=== PATIENT | male | born 1935 | race Caucasian/White ===

== ENCOUNTER 2016-08-18 09:59 | Outpatient (CLI) | payer OTHER ==
[~2016-08-18 09:59] MED LIST: ABILIFY5 MG PO; ASPIRIN ADULT L81 MG PO; CLARITIN5 MG; COUMADIN5 MG PO; DEMEROL50 MG PO; FLONASE AL50 MCG/ACT; FLOVENT HFA110 MCG IN; HYCET1 ML PO; HYDROCHLOROTHIA25 MG PO; LIPITOR10 MG PO; LOVENOX100 MG/ML SC; LOVENOX80 MG/0.8 SC; NIACIN ER500 MG PO; SONATA5 MG PO; TRILIPIX135 MG
--- NOTE | 2016-08-18 13:02 | DIAGNOSTIC IMAGING REPORT ---
PROCEDURE: CT IVP CLINICAL INDICATION: MESENTERIC MASS; DELAYED RT UTETER, follow-up TECHNIQUE: Preliminary AP and lateral enterprise project manager views of the abdomen were obtained. Subsequently, noncontrast axial images were obtained of the entire abdomen and pelvis. 150 ml of Isovue 300 was injected intravenously, and axial images were obtained of the abdomen and pelvis with biphasic imaging of the liver and kidneys, followed by sagittal and coronal reformations. Postinjection AP enterprise project manager view of the abdomen was also obtained. COMPARISON: None. FINDINGS: ABDOMEN: Interval placement of a double-J right ureteral stent with the distal end coiled in the distal ureter just proximal to the UVJ. There is mild hydronephrosis which is unchanged. Normal symmetric enhancement of the kidneys. Resection of the previously noted right mesenteric mass with 2.8 x 2.5 cm residual enhance tumor surrounding the mid right ureter. There is also a residual bilobed enhancing mass anterior to the IVC measuring 2.0 and 1.5 cm. There is a right abdominal Lori drain in place. New surgical clips around the cecum. Interval placement of an IVC filter. Lung bases are clear. New small left pleural effusion. Heart size is normal with new small pericardial effusion. Liver, gallbladder, pancreas, spleen and adrenal glands are normal. Normal left kidney. Severe atherosclerosis of the aorta. Mild descending colon diverticulosis. Nonspecific bowel gas pattern. PELVIS: Mild proximal sigmoid diverticulosis with wall thickening and minor infiltration of the adjacent fat. There is no free fluid. Small bilateral fat filled inguinal hernias. No suspicious osseous lesions. Lower pelvic surgical suggestive of prostatectomy. IMPRESSION: 1. Resection of right abdominal mesenteric mass with 2.8 x 2.5 cm residual tumor around the mid right ureter and 2.0 and 1.5 cm bilobed residual tumor anterior to the IVC. 2. Double-J ureteral stent with the distal loop coiled in the distal right ureter, just proximal to the UVJ. There is stable mild right hydronephrosis 3. Right abdominal [place] drain in the surgical bed 4. Cecal surgical clips and IVC filter in place 5. Proximal sigmoid colon diverticulosis with wall thickening and minor infiltration of the adjacent fat suspicious for low grade diverticulitis. Underlying mass is less likely . Recommend follow-up. 6. Prostatectomy 7. New small left pleural and pericardial effusion 8. Results discussed with Dr. Hernández All CT scans at this facility use dose modulation, iterative reconstruction, and/or weight-based dosing when appropriate to reduce radiation dose to as low as reasonably achievable.
== END 2016-08-18 23:00 ==
LOC: CT SRH 09:59
DX: R19.07 Generalized intra-abdominal and pelvic swelling, mass and lump (principal); K57.30 Diverticulosis of large intestine without perforation or abscess without bleeding; J90 Pleural effusion, not elsewhere classified; Z85.46 Personal history of malignant neoplasm of prostate

== ENCOUNTER 2016-09-02 10:06 | Outpatient (CLI) | payer OTHER ==
--- NOTE | 2016-09-02 11:00 | DIAGNOSTIC IMAGING REPORT ---
PROCEDURE: XR CHEST 2 VIEW INDICATION: SOB TECHNIQUE: PA and lateral views. COMPARISON: Chest 07/22/2016 and 07/13/2016 FINDINGS: Lungs are clear. Heart and mediastinum are normal. Thorax is normal. IMPRESSION: 1. Negative chest.
--- NOTE | 2016-09-02 11:46 | DIAGNOSTIC IMAGING REPORT ---
PROCEDURE: US VENOUS - RIGHT EXT INDICATION: PAIN/SWELLING RIGHT LEG, follow TECHNIQUE: Duplex sonography of the deep venous system in the right lower extremity was performed. Compression and augmentation techniques were used. COMPARISON: Lower extremity venous duplex ultrasound 07/01/2016 FINDINGS: Previously noted DVT in the gastrocnemius, popliteal, profunda femoral and superficial femoral veins has propagated to the iliac vein (occluded ) there is also thrombosis of the proximal and mid greater saphenous veins. IMPRESSION: 1. Propagation of right leg DVT from the popliteal to the iliac veins 2. Thrombosis of the proximal and mid right greater saphenous vein 3. Results discussed with Dr. Hernández
== END 2016-09-02 23:00 ==
LOC: LAB SRH 10:06 → US SRH 10:06
DX: I82.401 Acute embolism and thrombosis of unspecified deep veins of right lower extremity (principal); R06.02 Shortness of breath

== ENCOUNTER 2016-09-15 12:54 | Outpatient (CLI) | payer OTHER ==
--- NOTE | 2016-09-15 18:10 | DIAGNOSTIC IMAGING REPORT ---
PROCEDURE: CT ABD/PELVIS WITH CONTRAST INDICATION: Status post resection of right retroperitoneal leiomyosarcoma. Right flank pain. TECHNIQUE: 75 ml of Isovue 300 were injected intravenously and axial images were obtained of the entire abdomen and pelvis with sagittal and coronal reformations. COMPARISON: Comparison is made to CT abdomen and pelvis (CT IVP) on 08/18/2016. FINDINGS: ABDOMEN: Interval removal of right surgical drain. There is moderate increase in a 7.8 x 3.5 cm bilobed right retro peroneal neoplasm (previously 6.3 x 2.2), enveloping the right ureter. There is a double -J right ureteral stent which is partially withdrawn from the bladder, and ends in the distal ureter with mild to moderate right hydronephrosis. Gallbladder, liver, spleen, pancreas, left kidney and aorta are normal. Bowel pattern is normal. IVC filter in position. PELVIS: There is chronic thrombus in the right iliac and femoral vein. Postoperative changes with multiple surgical clips in the pelvis. Moderate to marked diverticulosis, but no evidence of diverticulitis. IMPRESSION: 1. Interim removal of surgical drain in right lower abdomen. 2. Moderate increase in 7.8 x 3.5 cm right retroperitoneal residual neoplasm (previously 6.3 x 2.2 cm). 3. Neoplasm envelops the right ureter. There is a double-J ureteral stent in position, although the stent remains partially withdrawn from the bladder, although there has been no change in right hydronephrosis 4. 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 CT abdomen and pelvis. 5. Moderate to marked sigmoid diverticulosis, but no evidence of diverticulitis. 6. Findings discussed with the patient and his daughter, and called to Dr. Hernández. All CT scans at this facility use dose modulation, iterative reconstruction, and/or weight-based dosing when appropriate to reduce radiation dose to as low as reasonably achievable.
== END 2016-09-15 23:00 ==
LOC: LAB SRH 12:54 → CT SRH 12:54
DX: R10.9 Unspecified abdominal pain (principal); M79.89 Other specified soft tissue disorders; I82.511 Chronic embolism and thrombosis of right femoral vein; K57.30 Diverticulosis of large intestine without perforation or abscess without bleeding; N13.30 Unspecified hydronephrosis; Z98.890 Other specified postprocedural states
CPT/HCPCS: 90047; 90074; 95059

== ENCOUNTER 2016-09-24 00:59 | Observation (INO) | payer OTHER ==
[~2016-09-24] VITALS: Ht 175.3 cm; Wt 75.5 kg
--- NOTE | 2016-09-24 04:28 | ED NURSING NOTES ---
Clinical Report - Nurses [facility] [address] [place] [address] 09/24/2016 1:00 Patient: LYSSA MCCABE TRIAGE Triage time 01:00 Sep 24 2016. Acuity: LEVEL 3. Chief Complaint: SHORTNESS OF BREATH. SEPSIS SCREEN: Sepsis Screen: negative. Negative (no infection suspected/documented). Heart rate greater than 90. --01:11 Marlene Rene 01:02 09/24/16. BP: 145/73. HR: 105. RR: 22. O2 saturation: 98%. Temp: 98.8 F (oral). Pain level now: 08/18. --01:11 Marlene Rene. Weight: 77.1 kg stated. Height/Length: 69 inches Per Patient. BMI: 25.1. --01:09 Marlene Rene. Medications Atorvastatin Calcium Oral. --01:04 Marlene Rene Lovenox Subcutaneous 80 mg, 2x a day. --01:04 Marleen Rene Loratadine Oral. --01:04 Marlene Rene Fluocinolone Oint & Emollient External. Fluticasone Furoate Nasal. --01:05 Marlene Rene Zaleplon Oral. --01:05 Marlene Rene Oxycodone-Acetaminophen Oral. --01:06 Marlene Rene. Medication/allergy information source: the patient. --01:11 Marlene Rene. Allergies Morphine causes nausea. --01:05 Marlene Rene. History Arrived by private vehicle. Historian: patient. Accompanied by family. This started last night. ( Patient reports surgery to remove tumor back in July. He states after surgery he developed swelling in his right leg as well as a rash. he Reports that he had blood clots in his leg prior to surgery and has a filter in his femoral vein. He reports shortness of breath since surgery but states tonight it feels worse.). No fever or cough. PAST MEDICAL HX: Immunizations: status is unknown. SOCIAL HX: Never smoker. No alcohol use or drug use. No infectious disease exposure. ABUSE ASSESSMENT: No report of abuse. FALL RISK ASSESSMENT: Fall risk assessment completed. No fall risk identified. NUTRITIONAL RISK ASSESSMENT: The nutritional risk assessment revealed no deficiencies. FUNCTIONAL ASSESSMENT: Functional assessment: no impairments noted. LEARNING NEEDS ASSESSMENT: The learning needs assessment revealed no barriers. SKIN INTEGRITY ASSESSMENT: Skin integrity risk assessment completed. No skin integrity risk identified. --:11 Marlene Rene. PROBLEMS: Oral Anticoagulation Therapy. Abdominal Pain. Renal Insufficiency. DVT - Deep Venous Thrombosis. Prostate Cancer. Hypertension. --01:06 Marlene Rene. ADDITIONAL SURGERIES: Prostatectomy. Tonsillectomy. Tumor removal . --: Marlene Rene. Interventions ID band on patient. To treatment room. --:11 Marlene Rene. PHYSICAL ASSESSMENT Ambulatory to room. GENERAL / NEURO / PSYCH: Alert. Oriented X 4. Appears in no acute distress. HEENT: Mucous membranes are pink. RESPIRATORY: Mild respiratory distress. The patient can speak in full sentences. CVS: Cardiac rhythm: sinus tachycardia; (105). EXTREMITIES: 3+ pitting edema of the right lower extremity involving the foot, ankle, lower leg and thigh. SKIN: Skin rash located on the right leg. Skin is warm and dry. --01:12 Marlene Rene. NURSING PROGRESS NOTES Pulse oximeter and NIBP monitor placed on patient; monitor alarms on. Patient gowned. Reassurance given to the patient. Two patient identifiers checked. Call light placed in reach. Side rails up x 2. Bed placed in lowest position. Brakes of bed on. Patient ready for evaluation- chart flagged. --01:13 Marlene Rene 01:30 09/24/2016 Site #1 started via IV in the left antecubital space with an 20g angiocath, with aseptic technique and good blood return; one attempt. Blood drawn: rainbow set. Labeled in the presence of the patient and sent to the lab. Saline lock flushed with 10 mL saline. --:30 Marlene Rene EKG time: (01:19 Sep 24 2016). EKG was ordered, performed by a tech and shown to the ED physician. --01:35 Marlene Rene ( Patient reported pain at incision site. Pain medications ordered, patient refused morphine due to allergy. Patient states he vomits with morphine. RN explained to patient this is a common side effect and may not indicate a true allergy. Patient states at prior hospital visits he received Dilaudid. Patient informed that hydromorphone contains similar ingredient as morphine and may also cause nausea. provider placed order for dilaudid and zofran. RN at [facility] to give medication and patient refusing medication at this time, states he feels better.). --02:01 Marlene Rene 02:26 09/24/16. BP: 127/68. HR: 100. RR: 20. O2 saturation: 100% on nasal cannula at 2 liters/minute. Pain level now: 08/18. --02:26 Anju Marlene Patient transported to [place] by stretcher with tech. (02:40 Sep 24 2016). --02:40 Marlene Rene Patient returned from CT by stretcher with tech. (02:58 Sep 24 2016). ( Warm blankets applied). --03:01 Marlene Rene 02:58 09/24/16. BP: 137/81. HR: 104. RR: 20. O2 saturation: 100% on room air. --03:01 Marlene Rene 03:02 09/24/2016 Site #1. Redness and swelling noted. Infiltration Scale: Grade 3- skin blanched and edema less than 1 inch with mild to moderate pain. --03:02 Marlene Rene 03:30 09/24/16. ( Lab at bedside drawing labs). --03:51 Marlene Rene 04:00 09/24/16. BP: 132/70. HR: 100. RR: 20. O2 saturation: 99% on room air. --04:16 Marlene Rene 04:16 09/24/16. BP: 134/82. HR: 100. RR: 20. O2 saturation: 99% on room air. --04:17 Marlene Rene 04:19 09/24/2016 Nitroglycerin SL Tablets 0.4 mg given. Allergies verified and confirmed 5 rights. --04:19 Marlene Rene 04:26 09/24/16. BP: 130/80. HR: 100. RR: 20. O2 saturation: 96% on room air. Pain level now: 08/18. --04:27 Marlene Rene 04:45 09/24/2016 Site #1 removed. Catheter intact. Bandaid applied. --04:45 Marlene Rene 04:51 09/24/2016 Site #2 started via IV in the right forearm with an 22g angiocath, with aseptic technique and good blood return; one attempt. Saline lock flushed with 10 mL saline. --04:56 Joceline Wesbtrook R.N. 04:59 09/24/2016 Lasix IVP 40 mg given over 3 minute(s) via site #2. Allergies verified and confirmed 5 rights. IV patency established. IV site checked: no pain, redness, or swelling. IV flushed thoroughly pre- and post-medication administration. IVP given by RN. --04:59 Marlene Rene 05:12 09/24/2016 Site #[address] upon admission; patent, no pain and no signs of infection or infiltration. Converted to saline lock and flushed with 10 mL saline. --05:12 Marlene Rene. DISPOSITION / DISCHARGE 05:11 09/24/16. Condition at departure: stable. --05:11 Marlene Rene 05:10 09/24/16. BP: 131/76. HR: 103. RR: 20. O2 saturation: 98% on room air. Temp: 98.2 F (oral). Pain level now: 08/18. --05:11 Marlene Rene Disposition: observation in Acute Care. Transported via stretcher by [employer]. Report was given to a nurse via a phone call. Report included patient's care, treatment, medications, reviewed medication reconcilliation, and condition (including any recent changes or anticipated changes). All questions were answered. Report was acknowledged and care was transferred. (Paxton RICARDO). Patient's personal items; items were placed in belongings bag and transported with the patient. --05:12 Marlene Rene. Locked/Released at 09/24/2016 7:34 by Marlene Rene,
--- NOTE | 2016-09-24 04:28 | ED ORDER SUMMARY ---
..... Patient: LYSSA MCCABE OrderSheet [facility] VisitID: [id number] [place] [address] 80y, M Registration Date/Time: 09/24/2016 ORDER SHEET Weight: 77.1 kg (stated) Allergies: Morphine causes nausea GENERAL ORDERS: EKG - ER Stat (:09/24/2016 Stone Fink) (Ack 1:24 AMcQuoid ER Tech1) (1:27 HSoule) Chest 1V Urgent (:09/24/2016 Stone Fink) (Ack 1:24 AMcQuoid ER Tech1) (1:41 GUnger) Embedder (Continuous) (Respiratory Distress) (:09/24/2016 Stone Fink) (Ack 1:24 AMcQuoid ER Tech1) (1:27 HSoule) CBC w Diff Urgent (:09/24/2016 Stone Fink) (Ack 1:24 AMcQuoid ER Tech1) (2:04 AMcQuoid ER Tech1) CMP Urgent (:09/24/2016 Stone Fink) (Ack 1:24 AMcQuoid ER Tech1) (2:04 AMcQuoid ER Tech1) UA-Culture if indicated Urgent (:09/24/2016 Stone Fink) (Ack 1:24 AMcQuoid ER Tech1) (7:34 HSoule) PT with INR Urgent (:09/24/2016 Stone Fink) (Ack 1:24 AMcQuoid ER Tech1) (2:04 AMcQuoid ER Tech1) PTT Urgent (:09/24/2016 Stone Fink) (Ack 1:24 AMcQuoid ER Tech1) (2:04 AMcQuoid ER Tech1) Troponin-I Urgent (09/24/2016 Stone Fink) (Ack 1:24 AMcQuoid ER Tech1) (2:04 AMcQuoid ER Tech1) BNP Urgent (:09/24/2016 Stone Fink) (Ack 1:24 AMcQuoid ER Tech1) (2:04 AMcQuoid ER Tech1) D-Dimer Urgent (01:17 09/24/2016 Stone Fink) (Ack 1:24 AMcQuoid ER Tech1) (2:04 AMcQuoid ER Tech1) Pulse oximeter (01:17 09/24/2016 Stone Fink) (1:18 HSoule) Oxygen (2 L/min) (NC) (01:17 09/24/2016 Stone Fink) (Ack 1:24 AMcQuoid ER Tech1) (1:27 HSoule) CTA Thorax w Cont (No) (GFR 44. Cleared for CT per doc) Urgent (02:11 09/24/2016 Stone Fink) (Ack 2:17 AMcQuoid ER Tech1) (Cancelled: Other4:17 HSoule) Troponin-I (Redraw at 3:30am) Urgent (02:33 09/24/2016 Stone Fink) (Ack 2:35 AMcQuoid ER Tech1) (4:17 HSoule) MEDICATION ORDERS: NitroGLYCERIN SL 0.4 mg (once now) (04:13 09/24/2016 Stone Fink) (Ack 4:16 HSoule) (4:19 HSoule) IV FLUIDS: IV Saline Lock (01:09/24/2016 Stone Fink) (Ack 1:18 HSoule) (1:30 HSoule) Zofran IV 4 mg (NOW) (01:54 09/24/2016 Stone Fink) (Cancelled: Patient Refusal1:59 HSoule) Dilaudid IV 0.5 mg (HIGH ALERT MEDICATION, NOW) (01:54 09/24/2016 Stone Fink) (Cancelled: Patient Refusal1:59 HSoule) Lasix IV 40 mg (NOW) (04:28 09/24/2016 Stone Fink) (Ack 4:29 HSoule) (4:59 HSoule) ORDER SHEET NOTES: [Electronically signed by Marlene Rene (07:34 09/24/2016)] [Electronically signed by Marcelo Garcia Dr. (10:20 09/29/2016)] [Electronically locked/signed by Marlene Rene (07:34 09/24/2016)]
--- NOTE | 2016-09-24 04:28 | ED ORDER SUMMARY ---
..... Patient: LYSSA MCCABE OrderSheet [facility] VisitID: [id number] [address] [place] [address] 80y, M Registration Date/Time: 09/24/2016 ORDER SHEET Weight: 77.1 kg (stated) Allergies: Morphine causes nausea GENERAL ORDERS: EKG - ER Stat (:09/24/2016 Stone Fink) (Ack 1:24 AMcQuoid ER Tech1) (1:27 HSoule) Chest 1V Urgent (:09/24/2016 Stone Fink) (Ack 1:24 AMcQuoid ER Tech1) (1:41 GUnger) Mechanical Unit Repairer (Continuous) (Respiratory Distress) (:09/24/2016 Stone Fink) (Ack 1:24 AMcQuoid ER Tech1) (1:27 HSoule) CBC w Diff Urgent (:09/24/2016 Stone Fink) (Ack 1:24 AMcQuoid ER Tech1) (2:04 AMcQuoid ER Tech1) CMP Urgent (:09/24/2016 Stone Fink) (Ack 1:24 AMcQuoid ER Tech1) (2:04 AMcQuoid ER Tech1) UA-Culture if indicated Urgent (:09/24/2016 Stone Fink) (Ack 1:24 AMcQuoid ER Tech1) (7:34 HSoule) PT with INR Urgent (:09/24/2016 Stone Fink) (Ack 1:24 AMcQuoid ER Tech1) (2:04 AMcQuoid ER Tech1) PTT Urgent (:09/24/2016 Stone Fink) (Ack 1:24 AMcQuoid ER Tech1) (2:04 AMcQuoid ER Tech1) Troponin-I Urgent (09/24/2016 Stone Fink) (Ack 1:24 AMcQuoid ER Tech1) (2:04 AMcQuoid ER Tech1) BNP Urgent (:09/24/2016 Stone Fink) (Ack 1:24 AMcQuoid ER Tech1) (2:04 AMcQuoid ER Tech1) D-Dimer Urgent (01:17 09/24/2016 Stone Fink) (Ack 1:24 AMcQuoid ER Tech1) (2:04 AMcQuoid ER Tech1) Pulse oximeter (01:17 09/24/2016 Stone Fink) (1:18 HSoule) Oxygen (2 L/min) (NC) (01:17 09/24/2016 Stone Fink) (Ack 1:24 AMcQuoid ER Tech1) (1:27 HSoule) CTA Thorax w Cont (No) (GFR 44. Cleared for CT per doc) Urgent (02:11 09/24/2016 Stone Fink) (Ack 2:17 AMcQuoid ER Tech1) (Cancelled: Other4:17 HSoule) Troponin-I (Redraw at 3:30am) Urgent (02:33 09/24/2016 Stone Fink) (Ack 2:35 AMcQuoid ER Tech1) (4:17 HSoule) MEDICATION ORDERS: NitroGLYCERIN SL 0.4 mg (once now) (04:13 09/24/2016 Stone Fink) (Ack 4:16 HSoule) (4:19 HSoule) IV FLUIDS: IV Saline Lock (01:09/24/2016 Stone Fink) (Ack 1:18 HSoule) (1:30 HSoule) Zofran IV 4 mg (NOW) (01:54 09/24/2016 Stone Fink) (Cancelled: Patient Refusal1:59 HSoule) Dilaudid IV 0.5 mg (HIGH ALERT MEDICATION, NOW) (01:54 09/24/2016 Stone Fink) (Cancelled: Patient Refusal1:59 HSoule) Lasix IV 40 mg (NOW) (04:28 09/24/2016 Stone Fink) (Ack 4:29 HSoule) (4:59 HSoule) ORDER SHEET NOTES: [Electronically signed by Marlene Rene (07:34 09/24/2016)] [Electronically signed by Marcelo Garcia Dr. (10:20 09/29/2016)] [Electronically locked/signed by Marlene Rene (07:34 09/24/2016)]
--- NOTE | 2016-09-24 04:28 | ED CLINICAL REPORT ---
Clinical Report - Physicians/Mid Levels [facility] [address] [place] [address] 09/24/2016 1:00 Patient: LYSSA MCCABE Arrived- By private vehicle. Historian- patient. HISTORY OF PRESENT ILLNESS Chief Complaint: DYSPNEA. This started last night and is still present and worsening. It was gradual in onset and has been constant but is not gone now. The dyspnea is described as moderate and is worsened by exertion and is improved with sitting upright. No sputum production, sweating episodes, wheezing or chills. No chest pain or discomfort, calf pain or foot swelling. (reports being on blood thinners and having a IVC filter. patient states he has never been diagnosed with CHF or CT. Has hx of abdominal tumor resection about a month ago. Reports doing well since then. Has oncology appointment on 09/25/2016.). Similar symptoms previously: None. Recent medical care: The patient was seen recently in the emergency department and hospitalized. REVIEW OF SYSTEMS No nausea or vomiting. All systems otherwise negative, except as recorded above. PAST HISTORY See nurses notes. Deep venous thrombosis. Medications: Oxycodone-Acetaminophen Oral. Zaleplon Oral. Fluocinolone Oint & Emollient External. Fluticasone Furoate Nasal. Loratadine Oral. Lovenox Subcutaneous 80 mg, 2x a day. Atorvastatin Calcium Oral. Allergies: Morphine causes nausea. SOCIAL HISTORY Never smoker. No alcohol use or drug use. No recent travel. Is a local resident. ADDITIONAL NOTES The nursing notes have been reviewed. PHYSICAL EXAM Vital Signs: 09/24/2016 01:02 BP: 145/73. HR: 105. RR: 22. O2 saturation: 98%. Temp: 98.8 F. Pain level now: 110. Hypertensive. Oxygen saturation normal. Appearance: Alert. No acute distress. Eyes: Pupils equal, round and reactive to light. Eyes normal inspection. ENT: Ears normal. Nose normal. Pharynx normal. Uvula midline. Neck: Normal inspection. No jugular venous distention. Neck supple. CVS: Normal heart rate and rhythm. Heart sounds normal. Pulses normal. Respiratory: No wheezes or stridor. (mild crackles at the bases.). Abdomen: Soft and nontender. No organomegaly. Back: Normal inspection. Skin: Skin warm and dry. Normal skin color. No rash. Normal skin turgor. Extremities: Lower extremity edema. R > L. (hyperemia to the anterior left hernández that is improved per patient. no crepitus. no increased warmth. non-tender.). Neuro: Oriented X 3. No motor deficit. No sensory deficit. LABS, X-RAYS, AND EKG EKG: No acute process. No acute ischemia. Normal EKG. Narrow-complex tachycardia (103). Sinus tachycardia. Normal P waves. Normal JUANA. Normal QRS complex. Normal axis. Normal ST and T waves, QT and QTc. The study has been interpreted contemporaneously. The study has been independently viewed by me. The EKG appears to be a good tracing. Chest X-ray: Mild vascular congestion present. Cardiomegaly. No infiltrate. No pneumothorax. (Impression: mild CHF). Views: PA. Technique: good. The X-rays were independently viewed by me and interpreted contemporaneously by me. Laboratory Tests: CBC w Diff: (PHIL: 09/25/2016 05:30) ( MsgRcvd 09/25/2016 05:56) Final results Test Result Flag Units (Reference) WHITE BLOOD COUNT 9.2 K/uL (4.5-11.5) RED BLOOD COUNT 3.46 L M/uL (4.50-5.90) HEMOGLOBIN 9.5 L gm/dL (13.5-17.5) HEMATOCRIT 29.3 L % (41.0-53.0) MEAN CELL VOLUME 85 fL (80-100) MEAN CORPUSCULAR HGB 28 pg (26-34) MEAN CORPUSCULAR HGB CONC 33 g/dL (31-37) RED CELL DISTRIBUTION WIDTH 17.3 H % (11.6-14.8) PLATELET COUNT 544 H K/uL (150-400) NEUTROPHIL % 79.3 H % (50-75) LYMPH % 11.4 L % (25-40) MONO % 6.7 % (3-14) EOSINOPHIL % 2.3 % (0-4) BASOPHIL % 0.3 % (0-2) CMP: (PHIL: 09/25/2016 05:30) ( MsgRcvd 09/25/2016 06:22) Final results Test Result Flag Units (Reference) GLUCOSE 97 mg/dL (70-110) BUN 19 H mg/dL (7-18) CREATININE 1.7 H mg/dL (0.6-1.3) Estimated GFR 41.53 mL/min Estimated GFR- 50.33 mL/min Note: Persistent reduction over 3 months in eGFR<60 mL/min/1.73 m2 defines CKD. Patients with eGFR values>=60 mL/min/1.73 m2 may also have CKD if evidence ofpersistent proteinuria. Additional information may be foundat [email or web address]. SODIUM 137 mmol/L (136-145) POTASSIUM 4.3 mmol/L (3.5-5.1) CHLORIDE 100 mmol/L (98-107) CARBON DIOXIDE 26 mmol/L (21-32) CALCIUM 8.3 L mg/dL (8.5-10.1) TOTAL PROTEIN 6.4 g/dL (6.4-8.2) ALBUMIN 2.5 L g/dL (3.3-5.0) BILIRUBIN, TOTAL 0.2 mg/dL (0.0-1.0) ALKALINE PHOSPHATASE 135 H U/L (46-116) AST (SGOT) 15 U/L (15-37) ALT (SGPT) 13 U/L (12-78) BMP: (PHIL: 09/25/2016 05:30) ( MsgRcvd 09/25/2016 06:42) Final results Test Result Flag Units (Reference) GLUCOSE 96 mg/dL (70-110) BUN 19 H mg/dL (7-18) CREATININE 1.7 H mg/dL (0.6-1.3) Estimated GFR 41.53 mL/min Estimated GFR- 50.33 mL/min Note: Persistent reduction over 3 months in eGFR<60 mL/min/1.73 m2 defines CKD. Patients with eGFR values>=60 mL/min/1.73 m2 may also have CKD if evidence ofpersistent proteinuria. Additional information may be foundat [email or web address]. SODIUM 135 L mmol/L (136-145) POTASSIUM 4.3 mmol/L (3.5-5.1) CHLORIDE 98 mmol/L (98-107) CARBON DIOXIDE 24 mmol/L (21-32) CALCIUM 8.3 L mg/dL (8.5-10.1) MAGNESIUM 2.0 mg/dL (1.8-2.4) UA-Culture if indicated: (PHIL: 09/24/2016 02:55) ( [facility] 09/24/2016 03:11) Final results Test Result Flag Units (Reference) URINE COLOR YELLOW URINE APPEARANCE CLEAR URINE GLUCOSE NEGATIVE (NEGATIVE) URINE BILIRUBIN NEGATIVE (NEGATIVE) URINE KETONE NEGATIVE (NEGATIVE) URINE SPECIFIC GRAVITY 1.020 (1.010-1.030) URINE PH 6.5 (5.0-8.0) URINE PROTEIN TRACE (NEGATIVE) URINE UROBILINOGEN 0.2 EU/dL (0.2-1.0) URINE NITRITE NEGATIVE (NEGATIVE) URINE BLOOD 1+ (NEGATIVE) URINE LEUK ESTERASE NEGATIVE (NEGATIVE) URINE RBC 3-5 rbc/hpf (0-1) URINE WBC 1-3 wbc/hpf (0-1) URINE EPITHELIAL CELLS NONE SEEN EPI/hpf (0-5) URINE BACTERIA TRACE (<1+) (NONE SEEN) URINE COMMENT CULT NOT INDICATED URINE CULTURES ARE SET-UP BASED ON THE FOLLOWING CRITERIA:POSITIVE NITRITEPOSITIVE LEUKOCYTE ESTERASEGREATER THAN 10 WHITE BLOOD CELLSMODERATE (2+) OR GREATER BACTERIA CBC w Diff: (PHIL: 09/24/2016 01:30) ( [facility] 09/24/2016 01:48) Final results Test Result Flag Units (Reference) WHITE BLOOD COUNT 9.3 K/uL (4.5-11.5) RED BLOOD COUNT 3.99 L M/uL (4.50-5.90) HEMOGLOBIN 11.0 L gm/dL (13.5-17.5) HEMATOCRIT 33.7 L % (41.0-53.0) MEAN CELL VOLUME 85 fL (80-100) MEAN CORPUSCULAR HGB 28 pg (26-34) MEAN CORPUSCULAR HGB CONC 33 g/dL (31-37) RED CELL DISTRIBUTION WIDTH 17.1 H % (11.6-14.8) PLATELET COUNT 611 H K/uL (150-400) NEUTROPHIL % 81.7 H % (50-75) LYMPH % 9.5 L % (25-40) MONO % 6.9 % (3-14) EOSINOPHIL % 1.7 % (0-4) BASOPHIL % 0.2 % (0-2) PT with INR: (PHIL: 09/24/2016 01:30) ( [facility] 09/24/2016 01:55) Final results Test Result Flag Units (Reference) INR 1.0 (0.8-1.2) Low Intensity Therapy: INR 1.5-2.0 PT range 18.5-23.1Mod.Intensity Therapy: INR 2.0-3.0 PT range 23.1-31.5High Intensity Therapy: INR 2.5-3.5 PT range 27.4-35.5High Intensity Therapy 2: INR 3.0-4.0 PT range 31.5-39.3 APTT 38 H SECONDS (24-34) D-DIMER QUANTITATIVE 1.61 H ug/mLFEU (0.27-0.52) The primary value of this quantitative assay relates toits negative predictive value (i.e. exclusion) of pulmonaryembolism/deep vein thrombosis/DIC.Elevated levels of d-dimer may also occur with:, age, cancer, inflammation, liver disease,post-op, infection, hematoma, coronary disease, peripheralarteriopathy, bleeding disorders and thrombolytic treatment.Results should be correlated with other clinical andradiological data.Testing Methodology: Latex Immunoassay Troponin-I: (PHIL: 09/24/2016 03:40) ( [facility] 09/24/2016 04:09) Final results Test Result Flag Units (Reference) TROPONIN I 0.06 ng/mL (0.00-1.5) TROPONIN REFERENCE RANGE:<0.1 NEGATIVE0.1-1.5 INDETERMINANT>1.5 POSITIVE BNP: (PHIL: 09/24/2016 01:30) ( [facility] 09/24/2016 02:17) Final results Test Result Flag Units (Reference) B-TYPE NATRIURETIC PEPTIDE 907 H pg/ml (5-100) CMP: (PHIL: 09/24/2016 01:30) ( MsgRcvd 09/24/2016 02:07) Final results Test Result Flag Units (Reference) GLUCOSE 97 mg/dL (70-110) BUN 15 mg/dL (7-18) CREATININE 1.6 H mg/dL (0.6-1.3) Estimated GFR 44.54 mL/min Estimated GFR- 53.98 mL/min Note: Persistent reduction over 3 months in eGFR<60 mL/min/1.73 m2 defines CKD. Patients with eGFR values>=60 mL/min/1.73 m2 may also have CKD if evidence ofpersistent proteinuria. Additional information may be foundat [email or web address]. SODIUM 135 L mmol/L (136-145) POTASSIUM 4.6 mmol/L (3.5-5.1) CHLORIDE 98 mmol/L (98-107) CARBON DIOXIDE 26 mmol/L (21-32) CALCIUM 8.9 mg/dL (8.5-10.1) TOTAL PROTEIN 7.5 g/dL (6.4-8.2) ALBUMIN 2.9 L g/dL (3.3-5.0) BILIRUBIN, TOTAL 0.3 mg/dL (0.0-1.0) ALKALINE PHOSPHATASE 170 H U/L (46-116) AST (SGOT) 24 U/L (15-37) ALT (SGPT) 18 U/L (12-78) TROPONIN I 0.10 ng/mL (0.00-1.5) TROPONIN REFERENCE RANGE:<0.1 NEGATIVE0.1-1.5 INDETERMINANT>1.5 POSITIVE . PROGRESS AND PROCEDURES Course of Care: the patient is a pleasant 80-year-old male presenting for evaluation of shortness of breath. The patient was brought in and in a mild amount of distress. The patient however did not appear toxic. Differential diagnoses at this time includes acute medical cardiac infarction, pulmonary embolism, pneumonia,congestive heart failure exacerbation. The patient does have a history of DVT. Patient will be evaluated with CT scan of the chest. Patient is agreeable to treatment plan. Patient's workup was noted for the findings above. Troponin is noted to be negative. The patient is having an acute myocardial infarction. EKG also does not indicate patient to have any acute ischemic events. Because of the patient's IVC filter and being on blood thinners, had discussion with patient and decided the CT scan of the chest would would not be needed at this time. Patient also would not be a good candidate for a ventilation perfusion scan based on his elevated BNP. Because of the elevated BNP,this is likely the patient'sreason for having the shortness of breath. Symptoms are also consistent with this. Had discussion with the hospitalist who will except the patient. Appropriate therapy has been given including nitroglycerin and Lasix. Patient be monitored in the hospital forcongestive heart failure. The patient has been resting here in the emergency department and in no acute distress. Breathing has significant improved upon reevaluation several times here in the emergency department. Patient has been updated on the plan of care as well as workup and diagnosis. Patient is agreeable to treatment plan. Family has been updated as well per patient's request. I spoken to the hospitalist who will except the patient. No further recommendations. He was admitted. patient stable for floor placement with telemetry. Tonight the patient needs ICU level of care. Critical care performed (65 minutes). Time is exclusive of separately billable procedures. Time includes: direct patient care, patient reassessment, coordination of patient care, review of patient's medical records, medical consultation, family consultation regarding treatment decisions and documentation of patient care. Consult obtained. Hospitalist. Disposition: Admitted. (Electronically signed by Marcelo Garcia Dr. 09/29/2016 10:20)
--- NOTE | 2016-09-24 05:39 | Progress Note ---
Subjective General Full note dictated: 80 y.o male with worse SOB last 2 days and orthopnea. 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 He presented with CXR and BNP c/w mild CHF. Plan: admit, treat with lasix and monitor labs. Has radiation due Wednesday and hopefully will be able to get this done if ready for d/c.
[2016-09-24 05:54] VITALS: BP 135/84
[2016-09-24] MEDS ORDERED: LORATADINE10 MG PO (06:00)
[2016-09-24] MEDS ORDERED: ENDOCET1 TAB PO (06:02)
[2016-09-24] MEDS ORDERED: LOVENOX80 MG/0.8 SC (06:04)
[2016-09-24] MEDS ORDERED: TRIAMCINOLONE A0.11 TOP (06:06)
--- NOTE | 2016-09-24 06:56 | DIAGNOSTIC IMAGING REPORT ---
PROCEDURE: XR CHEST 1 VIEW INDICATION: SHORTNESS OF BREATH TECHNIQUE: Portable AP view (0135 hours). COMPARISON: Compared to CT abdomen on 09/15/2016 and chest x-ray (09/02/2016). FINDINGS: Allowing for overlying wires and electrodes, lungs are clear. There are minimal pleural effusions. Heart and mediastinum are normal. Thorax is normal. IMPRESSION: 1. Minimal pleural effusions. 2. Otherwise negative chest.
--- NOTE | 2016-09-24 07:05 | HISTORY AND PHYSICAL ---
ADMITTED: 09/24/2016 CHIEF COMPLAINT: 1. Shortness of breath HISTORY OF PRESENT ILLNESS: The patient states that he has had surgery recently in his left lower abdomen a couple months ago, which was done by Dr. Hernández. Ever since that time, he has had issues of shortness of breath and some difficulty with breathing, that he has had a history of blood clots, he has bilateral DVTs as well as history of a Jenni filter and Lovenox 80 mg subcutaneous b.i.d. for treatment. In the last 3 weeks, he has noticed that his legs were swollen and then he has had a couple of weeks of a rash that is red and itchy on his right leg, and then for the last 2 nights, he has had a lot of shortness of breath, especially when he tries to lay down, he cannot sleep at all, that this increasing in worse shortness of breath, brought him into the hospital today for further evaluation. In the emergency department, he was found to have an elevated BNP and a chest x-ray that was consistent with congestive heart failure and he is admitted for congestive heart failure, mild exacerbation, and treatment and management. MEDICAL/SURGICAL HISTORY: His past medical history, he has generally been healthy other than his recent tumor. 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 . He has also had a history of prostate cancer and he has had high cholesterol and DVTs and high blood pressure. His past surgical history, he has had leiomyosarcoma surgery. He has had the Jenni filter and his ureteral stents. He has also had prostate surgery. MEDICATIONS: 1. He takes Lovenox 30 mg subcutaneous b.i.d. 2. Atorvastatin, he is uncertain of his dosing. 3. Zolpidem 10 mg p.o. at bedtime p.r.n. sleep. 4. Loratadine D 10 mg p.o. daily. 5. He uses a topical ointment on his right leg as needed. 6. Fluticasone 2 sprays each nostril once daily. ALLERGIES: 1. QUESTION MORPHINE. HE SAYS HE HAD LOTS OF VOMITING AFTER. SOCIAL HISTORY: He is . He does not smoke. He does not drink. Does not use any drugs. 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 FAMILY HISTORY: Mom and dad, he says he cannot recall what happened with them but his dad might have of heart disease, both have . REVIEW OF SYSTEMS: He states that he has had right leg swelling, rash, lower abdominal pain. He has a history of a ureteral stent that is misplaced and is supposed to have this replaced in about 3 weeks. He has got a tumor that is growing in his right lower abdomen and is followed by hematology/oncology with Dr. Reeys. Dr. Hernández did a surgery on is, that he is also going to be having radiation treatment and he is due for radiation on Wednesday as this tumor is growing. He has had this shortness of breath. He has had the history of blood clots. He otherwise denies any issues with bowel or bladder function or any major weakness. He does state that he is having more problems with his memory and forgetfulness that is going on with time and age. CODE STATUS: FULL CODE, THOUGH HE SAYS HE HAS A POLST FORM AND HE DOES NOT RECALL WHAT HE THOUGHT ON THAT, WITH DR. ROSAS. HE DOES WANT TO BE COMFORTABLE, BUT HE ALSO WANTS TO CONTINUE LIVING AT THIS TIME. PHYSICAL EXAMINATION: GENERAL: He is an alert, pleasant, cooperative male, who is sitting up, talking in full sentences, in no significant distress. VITAL SIGNS: Blood pressure is 145/73, heart rate of 105, respirations 22, saturating 98% on room air. His temperature is 98.8 and he is not having any significant pain. HEENT: Extraocular movements intact. Pupils equal, round, and reactive to light. Oropharynx is clear with moist mucous membranes. NECK: Supple without lymphadenopathy. LUNGS: With some coarse breath sounds bilaterally. Slightly decreased, nonfocal for significant rales. HEART: Regular rate and rhythm. No murmur. ABDOMEN: Soft, slightly tender to palpation over the right lower abdomen. He has a well-healed surgical scar in his mid lower abdomen. EXTREMITIES: Have 2+ edema bilaterally and his right foot has a red, slightly raised, erythematous papular/macular rash that has some excoriations. GENITOURINARY: Deferred. RECTAL: Deferred. NEUROLOGIC: Cranial nerves II-XII intact. Strength and sensation grossly intact. LAB/IMAGING: CBC is 9.3, hematocrit 33.3, platelets of 611. An INR of 1.0. D- dimer 1.6. A comprehensive metabolic panel, glucose 97, BUN 15, creatinine 1.6, sodium 135, potassium 4.6, chloride of 98, carbon dioxide 26, calcium 8.9, total protein 7.5, albumin 2.9, total bilirubin 0.3, alkaline phosphatase 170, AST of 24, ALT of 18. Troponin I 0.1. BNP of 907. Urinalysis was unremarkable except for a little bit of blood in his urine. Troponin was 0.06. EKG showed a sinus rhythm without any acute ST-T wave changes. There are nonspecific changes and no inferior Q's. There is sinus tachycardia, possible left atrial enlargement. CXR: mild CHF IMPRESSION: 1. This is a 80-year-old male with leiomyosarcoma that is actively growing in the right lower abdomen. 2. History of right-sided leg swelling greater than left that has erythema and 2+ edema. 3. He has increasing shortness of breath going on acutely over the last few days. PLAN: With his elevated BNP, we will admit him for mild congestive heart failure exacerbation, treat him with some Lasix and monitor his electrolytes. He has got some baseline renal insufficiency. A CT pulmonary angiogram has been done on him recently with veins that were unable to tolerate the dye load, and at this point, we will hold on this test and may consider if indicated a V/Q scan or attempted repeat trial on CT pulmonary angiogram if indicated. However, he is currently on Lovenox b.i.d. as well as has a Jenni filter and so should be adequately protected. He otherwise appears to be doing well and is comfortable and has no acute issues. We will admit him as an observation status, and hopefully, will be able to get him through his radiation treatment tomorrow.
--- NOTE | 2016-09-24 07:11 | NUR ---
TO ROOM 210B FROM ED VIA STRETCHER AROUND 0600. TRANSPORTED BY FACILITY TECH. PT AMBULATED FROM STRETCHER TO BED INDEPENDENTLY AND STEADY. A&OX4.
--- NOTE | 2016-09-24 09:24 | NUR ---
PATIENT RESTING IN BED AND UP IN CHAIR FOR BREAKFAST. AMBULATING INDEPENDENTLY IN ROOM. DENIES PAIN. SEE SHIFT ASSESSMENT FOR FURTHER DETAILS. TO HAVE ECHOCARDIOGRAM TODAY.
[2016-09-24 10:39] VITALS: BP 119/63
--- NOTE | 2016-09-24 13:21 | NUR ---
PATIENT ON TELE AND CONTINUES TO BE SINUS TACHYCARDIA. MD IS AWARE AND NO CHANGES MADE AT THIS TIME.
[2016-09-24 14:38] VITALS: BP 119/78
[2016-09-24 18:22] VITALS: BP 131/86
--- NOTE | 2016-09-24 19:12 | DIAGNOSTIC IMAGING REPORT ---
REFERRING PHYSICIAN/PROVIDER: Mata Torres MD CONSULTING WHOLESALE ACCOUNT EXECUTIVE: Jose Pradhan MD PROCEDURE: M-mode 2D echocardiography with spectral and color flow Doppler TECHNICAL QUALITY: Fair INDICATION: chf RHYTHM DURING PROCEDURE: Sinus tachycardia INTERPRETATIONS: LEFT VENTRICLE: The left ventricle is normal in size wall thickness with mildly reduced left ventricular systolic function. The ejection fraction is estimated at 47%. Normal diastolic function noted. RIGHT VENTRICLE: The right ventricle is normal in size and systolic function. ATRIA: Both atria are normal in size. The interatrial septum is intact with no evidence for an atrial septal defect. MITRAL VALVE: There is at least moderate acentric mitral regurgitation noted. There is no significant mitral stenosis noted. AORTIC VALVE: The aortic valve appears trileaflet. The aortic valve opens well. There is no evidence of aortic regurgitation or aortic stenosis noted. TRICUSPID VALVE: Tricuspid valve leaflets are thin and pliable. There is mild tricuspid regurgitation noted. The right ventricular systolic pressure is moderately elevated at 46 mmHg. PULMONIC VALVE: The pulmonic valve is not well visualized. There is no significant pulmonic regurgitation noted. GREAT VESSELS: The aortic root appears normal in size. PERICARDIUM: There is no significant pericardial effusion noted. IMPRESSION: 1. Normal left ventricular size with mildly reduced left ventricular systolic function (LVEF = 47%) 2. Normal biatrial size 3. At least moderate eccentric mitral regurgitation noted 4. Mild tricuspid regurgitation noted. 5. Moderately increased right ventricular systolic pressure (RVSP = 46 mmHg)
[2016-09-24 22:52] VITALS: BP 131/81
[2016-09-25 01:59] VITALS: BP 135/72
--- NOTE | 2016-09-25 04:28 | NUR ---
A/Ox4 appropriate, cooperative. vss afebrile. RA no sob even on activity. ambulatory independent. lungs clear. Rt sided mild abd pain present but declined pain med. PIV SL. ST 100's on tele, denies CP. BLE edema 2-3+ elevated. erythematous/skin discoloration on RLE. BRP voids well. pending discharge home today for radiation tx appointment 1pm today. pt is aware of and teared while talking about carcinoma. emot supported. mostly pleasant. proactively involve w/ care plan. slept well. uneventul noc.
[2016-09-25 05:55] VITALS: BP 203/86
[2016-09-25 06:53] VITALS: BP 145/109
[2016-09-25 07:13] VITALS: BP 129/84
[2016-09-25] MEDS ORDERED: FUROSEMIDE20 MG PO (09:41)
--- NOTE | 2016-09-25 09:44 | Provider's Discharge Care Plan ---
Problem, Goal, Plan Problem List 1. Fluid overload Instructions: - you have fluid overload secondary to the dvt and a lot of IV fluids , - take the lasix as prescribed for 2 weeks 2. DVT, bilateral lower limbs Instructions: Take meds as directed
--- NOTE | 2016-09-25 09:44 | Discharge Summary ---
Discharge Summary Report Admit Date 09/24/16 Discharge Date 09/25/16 Admission Diagnosis lower extremity swelling Discharge Diagnosis chf exacerbation Brief History The patient states that he has had surgery recently in his left lower abdomen a couple months ago, which was done by Dr. Hernández. Ever since that time, he has had issues of shortness of breath and some difficulty with breathing, that he has had a history of blood clots, he has bilateral DVTs as well as history of a Jenni filter and Lovenox 80 mg subcutaneous b.i.d. for treatment. In the last 3 weeks, he has noticed that his legs were swollen and then he has had a couple of weeks of a rash that is red and itchy on his right leg, and then for the last 2 nights, he has had a lot of shortness of breath, especially when he tries to lay down, he cannot sleep at all, that this increasing in worse shortness of breath, brought him into the hospital today for further evaluation. In the emergency department, he was found to have an elevated BNP and a chest x-ray that was consistent with congestive heart failure and he is admitted for congestive heart failure, mild exacerbation, and treatment and management. Hospital Course Patient was admitted for chf exacerbation. Symone was treated with diuretics, fluid restriction and leg elevation. Symone was also reminded that his leg will be prone to rapid swelling given his recent history of dvt. Patient was seen to have an almost immediate improvement in his degree of swelling overnight. Patient was instructed to have a fluid restriction of 2 liters a day, to continue to keep his leg elevated, and to continue with lasix for two weeks General Appearance Alert, Oriented X3, No acute distress HEENT PERRLA, Mucous membran moist/pink Lungs Clear to auscultation, Normal air movement Cardiovascular Normal S1, Normal S2 Abdomen Soft, No tenderness, No hepatospenomegaly Neurological Normal speech, Normal tone Discharge Instructions/Meds - c/w lasix - avoid more than 2 liter of fluid a day
--- NOTE | 2016-09-25 10:40 | NUR ---
I discussed with the patient their current medications, possible side effects, and answered questions.
[2016-09-25 11:15] VITALS: BP 126/76
--- NOTE | 2016-09-25 11:47 | NUR ---
PT. GIVEN DC INSTRUCTIONS AND SIGNED RX, SON AT BEDSIDE AND BOTH PATIENT AND SON VERBALIZE INSTRUCTIONS. IV DCD AND CATHETER TIP INTACT. PATIENT TOLERATED WELL AND PRESSURE DRESSING APPLIED. GIVEN SXS TO REPORT AND INSTRUCTED ON NEW CONDITION AND DAILY WEIGHTS ECT.
--- NOTE | 2016-09-29 10:21 | ED MED RECONCILIATION SUMMARY ---
Patient: LYSSA MCCABE Medication Reconciliation Report [facility] VisitID: [id number] [address] [place] [address] 80y, M Registration Date/Time: 09/24/2016 Weight: 77.1 kg Height/Length: 69 in. BMI: 25.1 ALLERGIES: Morphine causes nausea The patient's Home Medications are listed below: THE FOLLOWING MEDICATIONS NEED TO BE RECONCILED: Atorvastatin Calcium Oral Fluocinolone Oint & Emollient External Fluticasone Furoate Nasal Loratadine Oral Lovenox Subcutaneous 80 mg, 2x a day Oxycodone-Acetaminophen Oral Zaleplon Oral The source(s) of the original Home Medication information: patient The following Medications were given to the patient in the Emergency Department: Nitroglycerin [SL] SL 0.4 mg, administered: 09/24/2016 4:19:00 AM Lasix [IVP] IVP 40 mg, administered: 09/24/2016 4:59:00 AM The following Medications were prescribed to the patient: None.
--- NOTE | 2016-09-29 10:21 | ED MAR SUMMARY ---
..... Medication Administration Record [facility] [address] [place] [address] Patient: LYSSA MCCABE Visit ID: [id number] 80y, M Weight: 77.1 kg Height/Length: 69 in BMI: 25.1 ALLERGIES: Morphine causes nausea Given 04:19 09/24/2016 Marlene Rene, Medication Administered: NITROGLYCERIN [SL], Dose: 0.4 mg Tablets SL. Medication Ordered: NitroGLYCERIN SL 0.4 mg (once now). Given 04:59 09/24/2016 Marlene Rene, Medication Administered: LASIX [IVP], Dose: 40 mg IVP over 3 minute(s), Site: #2 right forearm. Medication Ordered: Lasix IV 40 mg (NOW).
--- NOTE | 2016-09-29 10:21 | ED MED RECONCILIATION SUMMARY ---
Patient: LYSSA MCCABE Medication Reconciliation Report [facility] VisitID: [id number] [address] [place] [address] 80y, M Registration Date/Time: 09/24/2016 Weight: 77.1 kg Height/Length: 69 in. BMI: 25.1 ALLERGIES: Morphine causes nausea The patient's Home Medications are listed below: THE FOLLOWING MEDICATIONS NEED TO BE RECONCILED: Atorvastatin Calcium Oral Fluocinolone Oint & Emollient External Fluticasone Furoate Nasal Loratadine Oral Lovenox Subcutaneous 80 mg, 2x a day Oxycodone-Acetaminophen Oral Zaleplon Oral The source(s) of the original Home Medication information: patient The following Medications were given to the patient in the Emergency Department: Nitroglycerin [SL] SL 0.4 mg, administered: 09/24/2016 4:19:00 AM Lasix [IVP] IVP 40 mg, administered: 09/24/2016 4:59:00 AM The following Medications were prescribed to the patient: None.
--- NOTE | 2016-09-29 10:21 | ED MAR SUMMARY ---
..... Medication Administration Record [facility] [address] [place] [address] Patient: LYSSA MCCABE Visit ID: [id number] 80y, M Weight: 77.1 kg Height/Length: 69 in BMI: 25.1 ALLERGIES: Morphine causes nausea Given 04:19 09/24/2016 Marlene Rene, Medication Administered: NITROGLYCERIN [SL], Dose: 0.4 mg Tablets SL. Medication Ordered: NitroGLYCERIN SL 0.4 mg (once now). Given 04:59 09/24/2016 Marlene Rene, Medication Administered: LASIX [IVP], Dose: 40 mg IVP over 3 minute(s), Site: #2 right forearm. Medication Ordered: Lasix IV 40 mg (NOW).
== END 2016-09-25 11:45 | disposition home or self-care (01) ==
LOC: ED SRH 00:59 → TRANS SRH 04:46 → ACUTE2 SRH 04:46
PROVIDERS: ADMIT Family Medicine
DX: I50.9 Heart failure, unspecified (principal); C49.4 Malignant neoplasm of connective and soft tissue of abdomen; Z86.718 Personal history of other venous thrombosis and embolism; Z79.01 Long term (current) use of anticoagulants; Z95.828 Presence of other vascular implants and grafts; Z85.46 Personal history of malignant neoplasm of prostate
CPT/HCPCS: 29230; 29251; 90004; 90047; 90074; 90100; 90616; 91320; 91556; 92720; 94001; 94060; 95059